=== PATIENT | female | born 1995 | race Caucasian/White ===

== ENCOUNTER 2020-01-07 19:56 | Emergency (ER) | payer SELFPAY ==
[2020-01-07] MEDS: LIDOCAINE HCL 1% LOCAL INJ 20 ML VIAL (20:44)
--- NOTE | 2020-01-07 20:50 | ED.WOUNDLAC ---
HPI - Wound/Laceration General Chief Complaint: Wound/Laceration Stated Complaint: cut hand Source: patient Mode of arrival: ambulatory Limitations: no limitations History of Present Illness HPI narrative: Pt was trying to cut a frozen banana and knife slipped and cut palm of her hand. Happened immediately [employer]. no numbness, nl strength, able to move hand well, vascular supply intact Onset (ago): minute(s) Extremity Location: Left: hand Place: home Patient tetanus UTD: No Context: accidental Related Data Home Medications Medication Instructions Recorded Confirmed No Home Medications 01/07/20 01/07/20 Allergies Allergy/AdvReac Type Severity Reaction Status Date / Time No Known Allergies Allergy Verified 01/07/20 20:54 Review of Systems Review of Systems: All systems reviewed & are unremarkable except as noted in HPI and below PMFSH Social History Social History (Updated 01/07/20 @ 20:53 by Mary Wang MD) Smoking status: Never smoker Alcohol intake: never Substance use: never Exam Const: General: no acute distress Nutritional Appearance: well nourished HENMT: Head: normal to inspection Resp: Effort & Inspection: normal respiratory effort Skin: General skin exam: normal color Wounds: wounds noted (laceration to left hand) Neuro: General: patient oriented x3 Speech: normal speech Extrem: General: normal to inspection Other: nl neuro exam to hand and finger, vasc intact. all movement and strength preserved Psych: Mental Status: mental status grossly normal Affect: normal affect Procedures Laceration Laceration 1: Date: 01/07/20 Time: 20:54 Site: hand Description: linear Depth: simple, single layer Local Anesthetic: lidocaine 1% Amount of anesthesia used (mL): 8 Pre-repair: wound explored and irrigated ====== Skin Level ====== Skin layer closed with: nylon and prolene Size (cm): 4-0 and 5-0 Technique: simple, interrupted ====== Subcutaneous Layer ====== Size: 4-0 and 5-0 Number of sutures: 8 Technique: simple, interrupted ====== Muscle Layer ====== ====== Tendon Layer ====== Discharge Plan Discharge Clinical Impression: Laceration Patient Disposition: Home, Self-Care Condition: Stable Instructions: Antibiotic Form Prescriptions: No Action No Home Medications RF: 0 Follow-up/Referrals: UNKNOWN,DOCTOR [Primary Care Provider] - Time of Disposition: 20:56
[2020-01-07] MEDS: TETANUS,DIPHTHERIA,AC PERTUSSIS ADULT 0.5 ML (ADACEL) IM (20:53)
[2020-01-07 20:55] VITALS: BP 137/86; PULSE 89; RESP 16; TEMP 36.9; O2SAT 97
[2020-01-07 21:28] VITALS: RESP 17
== END 2020-01-07 21:29 | disposition home or self-care (01) ==
PROVIDERS: Emergency Provider Emergency Medicine
DX: S61.412A Laceration without foreign body of left hand, initial encounter (principal); W26.0XXA Contact with knife, initial encounter
CPT/HCPCS: 12002; 12001; 90471; 90715; 99282